=== PATIENT | male | born 1960 | race Two or more races ===

== ENCOUNTER 2020-01-31 09:59 | Outpatient (CLI) | payer BC ==
[2020-02-01] MEDS ORDERED: LACTULOSE 10 G/15 ML UDC (PYXIS) ONE (04:45)
== END 2020-01-31 23:59 | disposition home or self-care (01) ==
LOC: RAD 09:59
PROVIDERS: ATTEND Family Medicine
DX: Z00.01 Encounter for general adult medical examination with abnormal findings (principal); R25.1 Tremor, unspecified
CPT/HCPCS: 71046

== ENCOUNTER 2020-02-26 09:37 | Outpatient (CLI) | payer BC ==
[2020-02-26] MEDS ORDERED: GADOTERIDOL 279.3 MG/ML VIAL IV ONE (09:38)
[2020-02-26 13:27] LABS: APPEARANCE,URINE CLEAR (CLEAR); BILIRUBIN,URINE NEGATIVE (NEGATIVE); BLOOD, URINE TRACE-INTA Ery/uL (NEGATIVE); COLOR,URINE YELLOW (YELLOW); KETONES,URINE NEGATIVE (NEGATIVE); LEUKOCYTE ESTERASE ,URINE NEGATIVE (NEGATIVE); NITRITE, URINE NEGATIVE (NEGATIVE); PH,URINE 6.5 (5.0-8.0); PROTEIN,URINE NEGATIVE (NEGATIVE); UGLUCOSE NEGATIVE (NEGATIVE); UROBILINOGEN,URINE 0.2 EU/dL (0.2)
[2020-02-26 13:29] LABS: BACTERIA,URINE None seen /HPF (None Seen); SQUAMOUS EPITHELIAL CELL,UR 0-2 /HPF (None Seen); WBC,URINE 0-2 /HPF (0-3)
== END 2020-02-26 23:59 | disposition home or self-care (01) ==
LOC: MRI 09:37
PROVIDERS: ATTEND Family Medicine
DX: Z00.01 Encounter for general adult medical examination with abnormal findings (principal); R25.1 Tremor, unspecified; R31.9 Hematuria, unspecified; G31.89 Other specified degenerative diseases of nervous system; I70.0 Atherosclerosis of aorta; N13.30 Unspecified hydronephrosis
CPT/HCPCS: 70553; 71046; 76770; 81001; A9579 ×2; 81000-TC; 87086-TC

== ENCOUNTER 2020-03-21 08:46 | Outpatient (CLI) | payer BC ==
[2020-03-21 09:37] LABS: APPEARANCE,URINE CLEAR (CLEAR); BILIRUBIN,URINE NEGATIVE (NEGATIVE); BLOOD, URINE TRACE-INTA Ery/uL (NEGATIVE); COLOR,URINE YELLOW (YELLOW); KETONES,URINE NEGATIVE (NEGATIVE); LEUKOCYTE ESTERASE ,URINE NEGATIVE (NEGATIVE); NITRITE, URINE NEGATIVE (NEGATIVE); PH,URINE 6.5 (5.0-8.0); PROTEIN,URINE NEGATIVE (NEGATIVE); UGLUCOSE NEGATIVE (NEGATIVE); UROBILINOGEN,URINE 0.2 EU/dL (0.2)
[2020-03-21 09:41] LABS: BACTERIA,URINE None seen /HPF (None Seen); RBC,URINE 0-2 /HPF (0-2); SQUAMOUS EPITHELIAL CELL,UR None Seen /HPF (None Seen); WBC,URINE NONE SEEN /HPF (0-3)
== END 2020-03-21 23:59 | disposition home or self-care (01) ==
LOC: LAB 08:46
PROVIDERS: ATTEND Family Medicine
DX: R31.9 Hematuria, unspecified (principal)
CPT/HCPCS: 81000-TC

== ENCOUNTER 2020-05-15 08:49 | Outpatient (CLI) | payer BC ==
[2020-05-15 10:37] LABS: CREATININE 0.9 mg/dL (0.6-1.3)
== END 2020-05-15 23:59 | disposition home or self-care (01) ==
LOC: LAB 08:49
PROVIDERS: ATTEND Family Medicine
DX: R31.9 Hematuria, unspecified (principal)
CPT/HCPCS: 36415; 82565-TC; 84520-TC

== ENCOUNTER 2020-05-16 08:55 | Outpatient (CLI) | payer BC ==
[2020-05-16] MEDS ORDERED: IV NS 0.9% 250 ML IV ONE (09:39)
[2020-05-16] MEDS ORDERED: IOHEXOL-300 100 ML VIAL IV ONE (09:39)
[2020-05-16] MEDS ORDERED: CT SWABBABLE VALVE TRANS SET 1 EA INFUS.SET MC ONE (09:39)
== END 2020-05-16 23:59 | disposition home or self-care (01) ==
LOC: CT 08:55
PROVIDERS: ATTEND Family Medicine
DX: R16.0 Hepatomegaly, not elsewhere classified (principal); K57.90 Diverticulosis of intestine, part unspecified, without perforation or abscess without bleeding; R31.9 Hematuria, unspecified
CPT/HCPCS: 74178; 76870; J7050; Q9967